=== PATIENT | male | born 1960 | race Hispanic/Latino ===

== ENCOUNTER 2019-06-04 13:50 | Inpatient (IN) | payer BC ==
[2019-06-04 15:30] LABS: #Eosinphils 0.2 thou/uL (0.0-0.7); #Lymphocytes 2.3 thou/uL (1.20-3.40); #Monocytes 0.5 thou/uL (0.11-0.59); #Neutrophils 5.5 thou/uL (1.40-6.50); %Basophils 0.3 % (0.0-1.0); %Eosinophils 2.4 % (0.0-10.0); %Lymphocytes 27.3 % (21.0-51.0); %Monocytes 5.4 % (0.0-10.0); %Neutrophils 64.5 % (42.0-75.0); Hemoglobin 11.9 g/dL (14.0-18.0); Mean Corpuscular HGB CONC 35.5 g/dL (32.0-36.0); Mean Corpuscular Hemoglobin 28.4 pg (27.0-31.0); Mean Corpuscular Volume 79.8 fL (78.0-98.0); Platelet Count 244 thou/uL (130-400); RBC Distribution Width 12.3 % (11.5-14.5); White Blood Cell (WBC) Count 8.5 thou/uL (4.8-10.8)
[2019-06-04 15:51] LABS: ALT (SGPT) 10 U/L (8-55); AST (SGOT) 11 U/L (5-34); Albumin 2.9 g/dL (3.5-5.0); Alkaline Phosphatase 105 U/L (40-110); Anion Gap 9 mmol/L (10-20); BUN (Urea Nitrogen) 27 mg/dL (8.4-25.7); Bilirubin, Total 0.3 mg/dL (0.2-1.2); Calc. Creatinine Clearance 0 mL/min (70-130); Calcium 8.3 mg/dL (7.8-10.44); Carbon Dioxide 26 mmol/L (22-29); Chloride 105 mmol/L (98-107); Estimated GFR-MDRD 21; Globulin 3.2 g/dL (2.4-3.5); Glucose 190 mg/dL (70-105); Potassium 4.3 mmol/L (3.5-5.1); Protein, Total 6.1 g/dL (6.0-8.3); Sodium 136 mmol/L (136-145)
--- NOTE | 2019-06-04 18:22 | RAD ---
Exam: Chest 2 views HISTORY:Abscess Comparison: 06/30/2016 FINDINGS: Lungs: No masses or consolidation. Cardiac silhouette:Postop change of sternotomy. Cardiac silhouette is mildly enlarged. Pulmonary vessels: Mild prominence Pleural Spaces: Clear Pneumothorax: None Osseous abnormalities: None of acuity. IMPRESSION: Postoperative chest, without focal consolidation. Scattered chronic CHF.
--- NOTE | 2019-06-04 19:29 | ULT ---
RENAL ULTRASOUND: Date: 06-04-19 Comparison: None. History: Renal failure. Technique: Multiplanar grayscale sonographic imaging of the kidneys and urinary bladder obtained. FINDINGS: Left kidney measures 11.5 x 5.2 x 5.7 cm and the right kidney measures 12.3 x 5.9 x 6.7 cm. Urinary b ladder volume is 90 cc. There is no renal mass, hydronephrosis, or renal stone noted on either side. IMPRESSION: Unremarkable renal ultrasound. POS: JUNE
[2019-06-04] MEDS ORDERED: Acetaminophen 325 MG TAB PO PRN (19:44)
[2019-06-04] MEDS ORDERED: Ondansetron ODT 4 MG TAB PO PRN (19:44)
[2019-06-04] MEDS ORDERED: Dextrose 5% in Water 1,000 ML IV PRN (19:48)
[2019-06-04] MEDS ORDERED: Dextrose 50% Abboject 50 ML SYRINGE SLOW IVP PRN (19:48)
[2019-06-04] MEDS ORDERED: cloNIDine 0.1 MG TAB ONE (20:05)
[2019-06-04] MEDS ORDERED: Nitroglycerin 2% Ointment 1 INCH/1 GM Packet ONE (20:05)
[2019-06-04] MEDS ORDERED: Heparin 5,000 UNITS/ML VIAL SC SCH (21:00)
--- NOTE | 2019-06-04 21:09 | PDOC.EVN ---
Event Note - Event Note Event Note: [id number]
[2019-06-04] MEDS ORDERED: Cephalexin 250 MG CAP PO SCH (21:15)
[2019-06-04] MEDS ORDERED: Morphine 4 MG/ML VIAL ONE (21:32)
[2019-06-04] MEDS ORDERED: Acetaminophen 500 MG TAB ONE (21:32)
[2019-06-04 22:03] LABS: Lactic Acid 0.9 mmol/L (0.5-2.2)
--- NOTE | 2019-06-04 22:31 | ULT ---
EXAM: Bilateral lower extremity venous duplex: Deep veins evaluated with color Doppler, spectral analysis, and compression. INDICATIONS: Bilateral lower extremity pain and edema. FINDINGS: Deep veins interrogated include common femoral vein, femoral vein, popliteal vein, and post erior tibial vein. These veins show normal compression and blood flow. No evidence of DVT. Focus of altered echogenicity, right popliteal fossa measures between 5 and 6 cm in diameter IMPRESSION: Negative bilateral venous duplex exam. Findings favor complex right Barcenas cyst.
[2019-06-04 23:43] VITALS: BMI 35.2
[2019-06-05] MEDS: Sodium Chloride 0.9% 1,000 ML IV SCH ×2 (00:07→08:29)
[2019-06-05] MEDS ORDERED: Cephalexin 250 MG CAP PO SCH (00:15)
[2019-06-05] MEDS ORDERED: Heparin 5,000 UNITS/ML VIAL SC SCH (00:15)
[2019-06-05] MEDS: Heparin 5,000 UNITS/ML VIAL SC SCH ×2 (00:28→20:06)
--- NOTE | 2019-06-05 01:03 | HP ---
CHIEF COMPLAINT: Left leg pain and swelling. HISTORY OF PRESENT ILLNESS: Mr. Ramos is a 58-year-old male with past medical history of hypertension, hyperlipidemia, diabetes mellitus, type 2, presents to the emergency room with pain and swelling of both lower extremities, more on the left side. His leg has been painful and swollen for the last few weeks. According to him, he had a trauma to his left leg a few weeks ago. Leg started to swollen and being red, he did not take any antibiotics. Workup in the emergency room, the patient was found to be hypertensive with blood pressure as high as 255/112. Also, he was found to have acute kidney injury with a creatinine of 3.0. The patient is being admitted to the hospital for further management. PAST MEDICAL HISTORY: 1. Hypertension. 2. Hyperlipidemia. 3. Diabetes mellitus. 4. Coronary artery disease. PAST SURGICAL HISTORY: 1. Coronary artery bypass graft surgery. 2. Left shoulder surgery. 3. Right shoulder surgery. SOCIAL HISTORY: Denies drinking. He smokes cigars, 3 cigars per day. FAMILY HISTORY: Reviewed and noncontributory. ALLERGIES: NO KNOWN ALLERGIES. HOME MEDICATIONS: Please see home medication reconciliation form for updated medications. REVIEW OF SYSTEMS: Review of 14 systems negative except what is mentioned in history of present illness. PHYSICAL EXAMINATION: VITAL SIGNS: Blood pressure 238/119, pulse is 65, respiratory rate 14, pulse oximetry 99% on room air, temperature 97.8. GENERAL: The patient is awake, alert, does not appear to be in acute distress. HEAD: Normocephalic, atraumatic. NECK: Supple. No JVD. CHEST: Fair bilateral air entry. HEART: S1, S2. Regular. ABDOMEN: Soft, nontender. Bowel sounds present. NEUROLOGIC: Awake, alert, oriented x3. PSYCHIATRIC: Normal mood. EXTREMITIES: Both legs are swollen, more on the left side with skin breakdown/wound in the middle of the left leg anteriorly with surrounding erythema, minimal. LABORATORY DATA: Glucose 190, creatinine 3.0. WBC count is 8.5, hemoglobin 11.9, BNP is 105. Lactic acid is 2.2. ASSESSMENT: 1. Hypertensive emergency. 2. Acute renal failure. 3. Cellulitis of the left leg. 4. Diabetes mellitus, hyperglycemia. 5. Hyperlipidemia. 6. Coronary artery disease. PLAN: 1. Admit. 2. Monitor and control blood pressures. 3. Cautious IV fluid hydration, reassess in a.m. 4. Monitor kidney function and urine output. 5. Consider nephrology consultation in a.m. 6. We will get a venous Doppler of the left leg to rule out deep venous thrombosis. 7. Reconcile home medications. 8. Deep venous thrombosis prophylaxis as appropriate. 9. Expected length of stay, 2 midnights or more. Job ID: [id number]
[2019-06-05 06:14] LABS: #Basophils 0.1 thou/uL (0.0-0.2); #Eosinphils 0.3 thou/uL (0.0-0.7); #Lymphocytes 2.4 thou/uL (1.20-3.40); #Monocytes 0.5 thou/uL (0.11-0.59); #Neutrophils 3.7 thou/uL (1.40-6.50); %Basophils 1.2 % (0.0-1.0); %Eosinophils 4.4 % (0.0-10.0); %Lymphocytes 34.2 % (21.0-51.0); %Neutrophils 53.3 % (42.0-75.0); Hemoglobin 10.5 g/dL (14.0-18.0); Mean Corpuscular HGB CONC 34.6 g/dL (32.0-36.0); Mean Corpuscular Volume 80.9 fL (78.0-98.0); Mean Platelet Volume 7.3 fL (7.4-10.4); Platelet Count 234 thou/uL (130-400); RBC Distribution Width 12.3 % (11.5-14.5); Red Blood Cell (RBC) Count 3.74 mill/uL (4.70-6.10); White Blood Cell (WBC) Count 6.9 thou/uL (4.8-10.8)
[2019-06-05 06:32] LABS: Anion Gap 8 mmol/L (10-20); BUN (Urea Nitrogen) 25 mg/dL (8.4-25.7); Calc. Creatinine Clearance 39 mL/min (70-130); Calcium 7.7 mg/dL (7.8-10.44); Carbon Dioxide 24 mmol/L (22-29); Chloride 107 mmol/L (98-107); Estimated GFR-MDRD 24; Glucose 187 mg/dL (70-105); Potassium 3.7 mmol/L (3.5-5.1); Sodium 135 mmol/L (136-145)
[2019-06-05] MEDS: Cephalexin 250 MG CAP PO SCH ×4 (08:28→20:06)
[2019-06-05] MEDS ORDERED: FLU VACC QS2019-20(6MOS UP)/PF 60 MCG/0.5 ML SYRINGE IM ONE (09:00)
[2019-06-05] MEDS ORDERED: Benzonatate 100 MG CAP PO PRN (10:52)
[2019-06-05] MEDS ORDERED: Carvedilol 6.25 MG TAB PO SCH (11:15)
[2019-06-05] MEDS: Carvedilol 6.25 MG TAB PO SCH ×2 (11:19→16:37)
--- NOTE | 2019-06-05 14:23 | PDOC.HOSPP ---
- Subjective Subjective: Seen and examined. Breathing well on room air. Lower extremity edema persists. Patient with lower extremity wound that has been there for several weeks/ month. Patient denies history of renal disease in the past. Patient does endorse history of coronary artery bypass grafting, though he denies history of congestive heart failure. Patient has not seen donations attendant in greater than nine months. Family at bedside, all questions answered in detail. - Objective Vital Signs & Weight: Vital Signs (12 hours) Temp Pulse Resp BP Pulse Ox 06/05/19 08:00 97.7 F 64 18 180/87 H 99 06/05/19 04:00 97.4 F L 70 18 182/82 H 96 Weight Weight 205 lb 4 oz I&O: 06/04/19 06/05/19 06/06/19 06:59 06:59 06:59 Intake Total 750 Output Total 1100 Balance -350 Result Diagrams: 06/05/19 05:45 06/05/19 05:45 Additional Labs: Accuchecks 06/05/19 06/05/19 06/05/19 11:34 04:46 00:16 POC Glucose 237 H 203 H 136 H Radiology Reviewed by me: Yes (Renal US) Hospitalist ROS - Review of Systems All other systems reviewed; all pertinent +/- noted in HPI/Subj - Medication Medications: Active Medications Generic Name Dose Route Start Last Admin Trade Name Freq PRN Reason Stop Dose Admin Cephalexin 250 mg 06/05/19 09:00 06/05/19 13:03 Keflex PO 250 mg QID JOSIAS Administration Heparin Sodium (Porcine) 5,000 units 06/05/19 09:00 06/05/19 00:28 Heparin SC 5,000 units BID JOSIAS Administration Sodium Chloride 1,000 mls @ 75 mls/hr 06/04/19 19:45 06/05/19 08:29 Normal Saline 0.9% IV 1,000 mls .[id number] JOSIAS Administration - Exam General Appearance: NAD, awake alert Eye: anicteric sclera ENT: normocephalic atraumatic, moist mucosa Neck: supple, symmetric, no lymphadenopathy Heart: no murmur, no gallops, no rubs Respiratory: CTAB, no wheezes, no rales, no ronchi Gastrointestinal: soft, non-tender, no guarding, no rigidity Extremities - other findings: 3+ LE edema bilaterally Skin: no rashes Skin - other findings: Small superficial skin lesion on left leg anterior, scabbed healing Neurological: cranial nerve grossly intact, no focal deficits Musculoskeletal: normal strength, no muscle wasting Psychiatric: normal affect, A&O x 3 Hosp A/P (1) DONTA (acute kidney injury) Code(s): N17.9 - ACUTE KIDNEY FAILURE, UNSPECIFIED Status: Acute (2) CAD (coronary artery disease) Code(s): I25.10 - ATHSCL HEART DISEASE OF [place] CORONARY ARTERY W/O ANG PCTRS Status: Acute (3) DM (diabetes mellitus) Code(s): E11.9 - TYPE 2 DIABETES MELLITUS WITHOUT COMPLICATIONS Status: Acute (4) HTN (hypertension) Code(s): I10 - ESSENTIAL (PRIMARY) HYPERTENSION Status: Acute (5) HLD (hyperlipidemia) Code(s): E78.5 - HYPERLIPIDEMIA, UNSPECIFIED Status: Acute (6) Obesity (BMI 35.0-39.9 without comorbidity) Code(s): E66.9 - OBESITY, UNSPECIFIED Status: Acute - Plan Plan: medical/surgical unit nephrology consultation, recommendations appreciated renal ultrasound does not demonstrate obstructive uropathy gentle IV fluid resuscitation in the setting of coronary artery disease/ coronary artery bypass grafting patient does not know if he has a history of heart failure echocardiogram to quantify ejection fraction lower extremity ultrasound negative for DVT cardiomyopathy regimen is able hold nephro toxins insulin sliding-scale coverage for glucose control replace electrolytes as needed wound care lower extremity wounds
[2019-06-05] MEDS: hydrALAZINE 20 MG/ML VIAL SLOW IVP PRN (20:06)
[2019-06-05] MEDS: Acetaminophen/Codeine 30-300mg Tablet PO PRN (20:06)
[2019-06-05] MEDS: Amlodipine 5 MG TAB PO SCH (21:33)
--- NOTE | 2019-06-06 01:13 | CON ---
DATE OF CONSULTATION: 06/05/2019 CONSULTING PHYSICIAN: Dr. Medina. REASON FOR CONSULTATION: Acute kidney injury. REASON FOR ADMISSION: Leg pain. HISTORY OF PRESENT ILLNESS: A 58-year-old male with history of hypertension, hyperlipidemia, type 2 diabetes, coronary artery disease, came to the hospital with leg pain and was found to have acute kidney injury. His creatinine was around 3 and this morning, it was 2.7. He was started on hydration. He denies any nausea or vomiting. No chest pain or palpitation. No fever or chills. PAST MEDICAL HISTORY: Positive for hypertension, hyperlipidemia, type 2 diabetes, and coronary artery disease. PAST SURGICAL HISTORY: CABG, left shoulder and right shoulder surgery. HOME MEDICATIONS: 1. Tylenol No. 3. 2. Metoprolol. 3. Atorvastatin. 4. Metformin. 5. Gabapentin. ALLERGIES: NO KNOWN DRUG ALLERGIES. SOCIAL HISTORY: No smoking, alcohol or illicit drug abuse. FAMILY HISTORY: No history of kidney disease. REVIEW OF SYSTEMS: CONSTITUTIONAL: Negative for weight loss or gain, ability to conduct usual activities. SKIN: Negative for rash, itching. EYES: Negative for double vision, pain. ENT/MOUTH: Negative for nose bleeding, neck stiffness, pain, tenderness. CARDIOVASCULAR: Negative for palpitations, dyspnea on exertion, orthopnea. RESPIRATORY: Negative for shortness of breath, wheezing, cough, hemoptysis, fever or night sweats. GASTROINTESTINAL: Negative for poor appetite, abdominal pain, heartburn, nausea, vomiting, constipation, or diarrhea. GENITOURINARY: Negative for urgency, frequency, dysuria, nocturia. MUSCULOSKELETAL: Negative for pain, swelling. NEUROLOGIC/PSYCHIATRIC: Negative for anxiety, depression. ALLERGY/IMMUNOLOGIC: Negative for skin rash, bleeding tendency. PHYSICAL EXAMINATION: GENERAL: This is a well-built male, in no apparent distress. VITAL SIGNS: blood pressure 194/89. HEENT: Atraumatic, normocephalic. Oral mucosa is moist. NECK: Supple. CV: S1 and S2 heard. Rate and rhythm regular. RESPIRATORY: Clear. GI: Abdomen is soft. MUSCULOSKELETAL: 1+ edema. DERMATOLOGIC: No skin rash. NEUROLOGIC: Alert and awake. PSYCHIATRIC: Mood and affect normal. LABORATORY DATA: Labs show hemoglobin 10.5, potassium 3.7, BUN , creatinine is 2.7. ASSESSMENT AND PLAN: 1. Acute kidney injury on chronic kidney, stage 3. We will continue hydration. Avoid nephrotoxins. 2. Hyponatremia. 3. Edema, controlled. 4. History of hypertension. Titrate medications. 5. Anemia, mild. 6. Continue IV fluids. Avoid nephrotoxins. We will follow. Blood pressure remains low despite on carvedilol. We will increase the dose and titrate medications as tolerated. We will follow. Job ID: [id number]
[2019-06-06] MEDS: Sodium Chloride 0.9% 1,000 ML IV SCH ×2 (03:25→16:54)
[2019-06-06] MEDS: HYDROcodone/Acetaminophen 5/325 mg Tablet PO PRN ×2 (03:29→21:48)
[2019-06-06 06:14] LABS: Anion Gap 10 mmol/L (10-20); BUN (Urea Nitrogen) 24 mg/dL (8.4-25.7); Calc. Creatinine Clearance 39 mL/min (70-130); Calcium 7.7 mg/dL (7.8-10.44); Carbon Dioxide 22 mmol/L (22-29); Chloride 108 mmol/L (98-107); Estimated GFR-MDRD 24; Glucose 168 mg/dL (70-105); Sodium 136 mmol/L (136-145)
[2019-06-06] MEDS ORDERED: Ergocalciferol 1.25 MG(50,000 UNITS) CAP PO SCH (09:00)
[2019-06-06] MEDS: Cephalexin 250 MG CAP PO SCH ×4 (09:22→20:33)
[2019-06-06] MEDS: Carvedilol 6.25 MG TAB PO SCH ×2 (09:22→16:55)
[2019-06-06] MEDS: Heparin 5,000 UNITS/ML VIAL SC SCH ×2 (09:23→20:35)
[2019-06-06 10:54] LABS: #Eosinphils 0.2 thou/uL (0.0-0.7); #Lymphocytes 1.6 thou/uL (1.20-3.40); #Monocytes 0.4 thou/uL (0.11-0.59); #Neutrophils 3.8 thou/uL (1.40-6.50); %Basophils 0.6 % (0.0-1.0); %Eosinophils 3.4 % (0.0-10.0); %Lymphocytes 26.6 % (21.0-51.0); %Monocytes 6.2 % (0.0-10.0); %Neutrophils 63.2 % (42.0-75.0); Mean Corpuscular HGB CONC 34.4 g/dL (32.0-36.0); Mean Corpuscular Hemoglobin 28.2 pg (27.0-31.0); Mean Corpuscular Volume 81.9 fL (78.0-98.0); Mean Platelet Volume 7.4 fL (7.4-10.4); Platelet Count 224 thou/uL (130-400); RBC Distribution Width 12.5 % (11.5-14.5); Red Blood Cell (RBC) Count 3.91 mill/uL (4.70-6.10); White Blood Cell (WBC) Count 6.1 thou/uL (4.8-10.8)
[2019-06-06 11:03] LABS: Anion Gap 9 mmol/L (10-20); BUN (Urea Nitrogen) 25 mg/dL (8.4-25.7); Calc. Creatinine Clearance 37 mL/min (70-130); Calcium 7.8 mg/dL (7.8-10.44); Carbon Dioxide 22 mmol/L (22-29); Chloride 108 mmol/L (98-107); Estimated GFR-MDRD 23; Glucose 200 mg/dL (70-105); Potassium 4.1 mmol/L (3.5-5.1); Sodium 135 mmol/L (136-145)
[2019-06-06] MEDS: HumaLOG 300 UNITS/3 ML VIAL SC PRN (12:24)
--- NOTE | 2019-06-06 13:40 | PDOC.HOSPP ---
- Subjective Subjective: Seen and examined. Patient with persistent lower extremity edema. Breathing well on room air. Lower extremity wounds with less cellulitis on oral antibiotics. Echocardiogram pending. Renal function did not significantly improve. All questions answered in detail. - Objective Vital Signs & Weight: Vital Signs (12 hours) Temp Pulse Resp BP BP Pulse Ox 06/06/19 09:22 168/82 H 06/06/19 08:00 93 L 06/06/19 07:38 97.8 F 69 20 172/88 H 93 L 06/06/19 04:23 98.0 F 73 20 158/88 H 97 Weight Weight 205 lb 4 oz I&O: 06/05/19 06/06/19 06/07/19 06:59 06:59 06:59 Intake Total 750 1093 Output Total 1100 Balance -350 1093 Result Diagrams: 06/06/19 10:37 06/06/19 10:37 Additional Labs: Accuchecks 06/06/19 06/05/19 06/05/19 03:57 19:53 16:34 POC Glucose 164 H 194 H 200 H Radiology Reviewed by me: Yes (US LE - no DVT) Hospitalist ROS - Review of Systems All other systems reviewed; all pertinent +/- noted in HPI/Subj - Medication Medications: Active Medications Generic Name Dose Route Start Last Admin Trade Name Freq PRN Reason Stop Dose Admin Acetaminophen/Codeine Phosphate 1 tab 06/05/19 10:52 06/05/19 20:06 Tylenol #3 PO 1 tab DAILY PRN Administration Pain Hydrocodone Bitart/Acetaminophen 1 tab 06/04/19 19:44 06/06/19 03:29 [place] 5/325 PO 1 tab Q4H PRN Administration Moderate Pain (4-6) Amlodipine Besylate 5 mg 06/05/19 21:00 06/05/19 21:33 Norvasc PO 5 mg 2100 JOSIAS Administration Carvedilol 12.5 mg 06/05/19 20:50 06/06/19 09:22 Coreg PO 12.5 mg BID-WM JOSIAS Administration Cephalexin 250 mg 06/05/19 09:00 06/06/19 09:22 Keflex PO 250 mg QID JOSIAS Administration Ergocalciferol 1.25 mg 06/06/19 09:00 06/06/19 09:22 Drisdol PO 1.25 mg Q7DAYS JOSIAS Administration Heparin Sodium (Porcine) 5,000 units 06/05/19 09:00 06/06/19 09:23 Heparin SC 5,000 units BID JOSIAS Administration Hydralazine HCl 20 mg 06/04/19 21:07 06/05/19 20:06 Apresoline SLOW IVP 20 mg Q4H PRN Administration SBP >190 or DBP >100 Sodium Chloride 1,000 mls @ 75 mls/hr 06/04/19 19:45 06/06/19 03:25 Normal Saline 0.9% IV 1,000 mls .[id number] JOSIAS Administration Insulin Human Lispro 0 units 06/04/19 19:48 06/06/19 12:24 Humalog SC 2 unit .MILD SLIDING SCALE PRN Administration Mild Correctional Scale - Exam General Appearance: NAD, awake alert Eye: anicteric sclera ENT: normocephalic atraumatic, moist mucosa Neck: supple, symmetric, no lymphadenopathy Heart: no murmur, no gallops, no rubs Respiratory: CTAB, no wheezes, no rales, no ronchi Gastrointestinal: soft, non-tender, non-distended, no rigidity Extremities: 2+ LE edema Skin: no rashes Skin - other findings: Ant. holley lesion with less cellulitis. Improving Neurological: cranial nerve grossly intact, no weakness, no focal deficits Musculoskeletal: no muscle wasting Psychiatric: normal affect, A&O x 3 Hosp A/P (1) DONTA (acute kidney injury) Code(s): N17.9 - ACUTE KIDNEY FAILURE, UNSPECIFIED Status: Acute (2) CAD (coronary artery disease) Code(s): I25.10 - ATHSCL HEART DISEASE OF [place] CORONARY ARTERY W/O ANG PCTRS Status: Acute (3) DM (diabetes mellitus) Code(s): E11.9 - TYPE 2 DIABETES MELLITUS WITHOUT COMPLICATIONS Status: Acute (4) HTN (hypertension) Code(s): I10 - ESSENTIAL (PRIMARY) HYPERTENSION Status: Acute (5) HLD (hyperlipidemia) Code(s): E78.5 - HYPERLIPIDEMIA, UNSPECIFIED Status: Acute (6) Obesity (BMI 35.0-39.9 without comorbidity) Code(s): E66.9 - OBESITY, UNSPECIFIED Status: Acute - Plan Plan: medical/surgical unit nephrology consultation, recommendations appreciated renal ultrasound does not demonstrate obstructive uropathy gentle IV fluid resuscitation in the setting of coronary artery disease/ coronary artery bypass grafting patient does not know if he has a history of heart failure echocardiogram to quantify ejection fraction lower extremity ultrasound negative for DVT cardiomyopathy regimen is able hold nephro toxins insulin sliding-scale coverage for glucose control A1c to see if patient will require insulin on D/c replace electrolytes as needed wound care lower extremity wounds
[2019-06-06 14:12] LABS: Hemoglobin A1c 8.6 % (4.0-6.0)
--- NOTE | 2019-06-06 20:18 | PRG ---
DATE OF SERVICE: 06/06/2019 SUBJECTIVE: Patient was seen and examined at bedside and overnight events noted. Patient denies any shortness of breath or chest pain or palpitation. No history of nausea or vomiting or diarrhea or fever or chills or cramps. OBJECTIVE: GENERAL: This is a well-built male, in no apparent distress. VITAL SIGNS: Temperature 97.8. Heart rate 69. Respiratory rate . Blood pressure 160/82. HEENT: Atraumatic, normocephalic. Oral mucosa is moist NECK: Supple. CARDIOVASCULAR: S1, S2 heard. Rate and rhythm regular. RESPIRATORY: Clear to auscultation. GASTROINTESTINAL: Abdomen is soft. MUSCULOSKELETAL: No tenderness. No edema. DERMATOLOGIC: No skin rash. NEUROLOGIC: Alert and awake and oriented X3. No focal neurologic deficits. Moving all the extremities. PSYCHIATRIC: Mood and affect normal. LABORATORY DATA: Potassium 4.9, BUN is , creatinine is 2.8. ASSESSMENT AND PLAN: 1. Acute kidney injury on chronic kidney disease, stage 3 with stable creatinine. 2. Hyponatremia. 3. Edema. 4. Hypertension. 5. Vitamin deficiency with hyperparathyroidism, started on vitamin D. 6. Anemia, which is normocytic. We will check iron levels also. We will follow, avoid nephrotoxins. Renally dose the medications. Continue hydration as tolerated. Job ID: [id number]
[2019-06-06] MEDS: Amlodipine 5 MG TAB PO SCH (20:34)
[2019-06-06] MEDS: hydrALAZINE 20 MG/ML VIAL SLOW IVP PRN (20:40)
[2019-06-07] MEDS: Sodium Chloride 0.9% 1,000 ML IV SCH (04:34)
[2019-06-07] MEDS: HYDROcodone/Acetaminophen 5/325 mg Tablet PO PRN ×2 (04:37→20:32)
[2019-06-07] MEDS: hydrALAZINE 20 MG/ML VIAL SLOW IVP PRN (04:37)
[2019-06-07 07:03] LABS: Anion Gap 11 mmol/L (10-20); BUN (Urea Nitrogen) 24 mg/dL (8.4-25.7); Calc. Creatinine Clearance 40 mL/min (70-130); Carbon Dioxide 20 mmol/L (22-29); Chloride 109 mmol/L (98-107); Estimated GFR-MDRD 25; Glucose 153 mg/dL (70-105); Potassium 3.8 mmol/L (3.5-5.1); Sodium 136 mmol/L (136-145)
[2019-06-07 07:07] LABS: Iron 60 ug/dL (65-175); Iron Binding Capacity, Total 230 mcg/dL (261-462)
[2019-06-07] MEDS: Heparin 5,000 UNITS/ML VIAL SC SCH ×2 (08:11→20:32)
[2019-06-07] MEDS: Cephalexin 250 MG CAP PO SCH ×4 (08:11→20:32)
[2019-06-07] MEDS: Carvedilol 6.25 MG TAB PO SCH (08:11)
[2019-06-07] MEDS ORDERED: Carvedilol 6.25 MG TAB PO SCH (10:30)
[2019-06-07] MEDS ORDERED: Amlodipine 5 MG TAB PO SCH (10:30)
[2019-06-07 10:46] LABS: Creatinine, Urine 90.06 mg/dL (63-166)
--- NOTE | 2019-06-07 10:49 | PRG ---
DATE OF SERVICE: 06/07/2019 SUBJECTIVE: Patient was seen and examined at bedside and overnight events noted. Patient denies any shortness of breath or chest pain or palpitation. No history of nausea or vomiting or diarrhea or fever or chills or cramps. OBJECTIVE: GENERAL: This is a well-built male, in no apparent distress. VITAL SIGNS: Temperature 98.1. Heart rate 77. Respiratory rate 18. Blood pressure 184/79. HEENT: Atraumatic, normocephalic. Oral mucosa is moist NECK: Supple. CARDIOVASCULAR: S1, S2 heard. Rate and rhythm regular. RESPIRATORY: Clear to auscultation. GASTROINTESTINAL: Abdomen is soft. MUSCULOSKELETAL: No tenderness. No edema. DERMATOLOGIC: No skin rash. NEUROLOGIC: Alert and awake and oriented X3. No focal neurologic deficits. Moving all the extremities. PSYCHIATRIC: Mood and affect normal. LABORATORY DATA: Potassium 3.8, BUN is 24, and creatinine is 2.6. ASSESSMENT AND PLAN: 1. Acute kidney injury on chronic kidney disease stage 3, stable creatinine. It sounds like more chronic issue. 2. Hyponatremia. 3. Edema. 4. Vitamin D deficiency with secondary hyperparathyroidism. Continue vitamin D. 5. Anemia with adequate iron levels. 6. History of hypertension. Blood pressure remains elevated. Started on amlodipine. We will increase the dose to 5 mg p.o. b.i.d. We will increase carvedilol dose as heart rate is tolerated. We will follow. Job ID: [id number]
[2019-06-07] MEDS: HumaLOG 300 UNITS/3 ML VIAL SC PRN (11:27)
--- NOTE | 2019-06-07 15:17 | PDOC.HOSPP ---
- Subjective Encounter Date: 06/07/19 Encounter Time: 15:15 Subjective: Feeling better - Objective Vital Signs & Weight: Vital Signs (12 hours) Temp Pulse Resp BP BP Pulse Ox 06/07/19 12:13 98.3 F 75 18 172/84 H 99 06/07/19 11:25 189/79 H 06/07/19 08:11 189/79 H 06/07/19 08:00 98 06/07/19 07:39 98.1 F 77 20 184/79 H 98 06/07/19 05:36 76 153/78 H 06/07/19 04:37 72 194/95 H 06/07/19 04:32 98.4 F 72 18 195/94 H 98 Weight Admit Weight 205 lb 4 oz Weight 205 lb 4 oz I&O: 06/06/19 06/07/19 06/08/19 06:59 06:59 06:59 Intake Total 1093 2819 Balance 1093 2819 Result Diagrams: 06/06/19 10:37 06/07/19 06:01 Additional Labs: Accuchecks 06/07/19 06/07/19 06/06/19 11:27 04:55 19:15 POC Glucose 202 H 137 H 193 H 06/06/19 16:50 POC Glucose 129 H Hospitalist ROS - Medication Medications: Active Medications Generic Name Dose Route Start Last Admin Trade Name Freq PRN Reason Stop Dose Admin Acetaminophen/Codeine Phosphate 1 tab 06/05/19 10:52 06/05/19 20:06 Tylenol #3 PO 1 tab DAILY PRN Administration Pain Hydrocodone Bitart/Acetaminophen 1 tab 06/04/19 19:44 06/07/19 04:37 [place] 5/325 PO 1 tab Q4H PRN Administration Moderate Pain (4-6) Cephalexin 250 mg 06/05/19 09:00 06/07/19 13:10 Keflex PO 250 mg QID JOSIAS Administration Ergocalciferol 1.25 mg 06/06/19 09:00 06/06/19 09:22 Drisdol PO 1.25 mg Q7DAYS JOSIAS Administration Heparin Sodium (Porcine) 5,000 units 06/05/19 09:00 06/07/19 08:11 Heparin SC 5,000 units BID JOSIAS Administration Hydralazine HCl 20 mg 06/04/19 21:07 06/07/19 04:37 Apresoline SLOW IVP 20 mg Q4H PRN Administration SBP >190 or DBP >100 Insulin Human Lispro 0 units 06/04/19 19:48 06/07/19 11:27 Humalog SC 3 unit .MILD SLIDING SCALE PRN Administration Mild Correctional Scale - Exam General Appearance: NAD, awake alert, ill appearing Eye: PERRL, anicteric sclera, scleral icterus ENT: normocephalic atraumatic, no oropharyngeal lesions, moist mucosa, dry oral mucosa Neck: supple, symmetric, no JVD, no thyromegaly, no lymphadenopathy, no carotid bruit, JVD Heart: RRR, no murmur, no gallops, no rubs, normal peripheral pulses, irregular , diminshed peripheral pulses, murmur present, II/IV, III/IV Respiratory: CTAB, no wheezes, no rales, no ronchi, normal chest expansion, no tachypnea, normal percussion, rales, rhonchi, tachypneic, wheezes Gastrointestinal: soft, non-tender, non-distended, normal bowel sounds, no palpable masses, no hepatomegaly, no splenomegaly, no bruit, no guarding, no rigidity, tender to palpation, distended, diminished bowl sounds, voluntary guarding Extremities: no cyanosis, no clubbing, no edema, 1+ LE edema, 2+ LE edema, clubbing Skin: normal turgor, no lesions, no rashes, tenting Hosp A/P (1) DONTA (acute kidney injury) Code(s): N17.9 - ACUTE KIDNEY FAILURE, UNSPECIFIED Status: Acute (2) CAD (coronary artery disease) Code(s): I25.10 - ATHSCL HEART DISEASE OF [place] CORONARY ARTERY W/O ANG PCTRS Status: Acute Plan: Apreciate Nephrology input, Monitor the labs (3) DM (diabetes mellitus) Code(s): E11.9 - TYPE 2 DIABETES MELLITUS WITHOUT COMPLICATIONS Status: Acute (4) HLD (hyperlipidemia) Code(s): E78.5 - HYPERLIPIDEMIA, UNSPECIFIED Status: Acute (5) HTN (hypertension) Code(s): I10 - ESSENTIAL (PRIMARY) HYPERTENSION Status: Acute
[2019-06-07] MEDS: Carvedilol 25 MG TAB PO SCH (16:06)
[2019-06-07] MEDS: Amlodipine 5 MG TAB PO SCH (20:29)
[2019-06-08 05:51] LABS: Anion Gap 11 mmol/L (10-20); BUN (Urea Nitrogen) 29 mg/dL (8.4-25.7); Calc. Creatinine Clearance 40 mL/min (70-130); Calcium 7.8 mg/dL (7.8-10.44); Carbon Dioxide 20 mmol/L (22-29); Chloride 109 mmol/L (98-107); Estimated GFR-MDRD 25; Glucose 142 mg/dL (70-105); Potassium 3.7 mmol/L (3.5-5.1); Sodium 136 mmol/L (136-145)
[2019-06-08] MEDS: Carvedilol 25 MG TAB PO SCH ×2 (08:37→17:11)
[2019-06-08] MEDS: Amlodipine 5 MG TAB PO SCH ×2 (08:38→20:11)
[2019-06-08] MEDS: Cephalexin 250 MG CAP PO SCH ×4 (08:38→20:12)
[2019-06-08] MEDS: Heparin 5,000 UNITS/ML VIAL SC SCH ×2 (08:39→20:12)
--- NOTE | 2019-06-08 11:20 | PDOC.HOSPP ---
- Subjective Encounter Date: 06/08/19 Encounter Time: 11:18 Subjective: The Bp has been still high - Objective Vital Signs & Weight: Vital Signs (12 hours) Temp Pulse Resp BP BP Pulse Ox 06/08/19 08:38 60 186/84 H 06/08/19 07:43 97.9 F 62 18 186/84 H 98 Weight Admit Weight 205 lb 4 oz Weight 205 lb 4 oz I&O: 06/07/19 06/08/19 06/09/19 06:59 06:59 06:59 Intake Total 2819 2370 Balance 2819 2370 Result Diagrams: 06/06/19 10:37 06/08/19 05:12 Additional Labs: Accuchecks 06/08/19 06/07/19 06/07/19 04:54 19:09 16:43 POC Glucose 139 H 179 H 141 H 06/07/19 11:27 POC Glucose 202 H Hospitalist ROS - Medication Medications: Active Medications Generic Name Dose Route Start Last Admin Trade Name Freq PRN Reason Stop Dose Admin Acetaminophen/Codeine Phosphate 1 tab 06/05/19 10:52 06/05/19 20:06 Tylenol #3 PO 1 tab DAILY PRN Administration Pain Hydrocodone Bitart/Acetaminophen 1 tab 06/04/19 19:44 06/07/19 20:32 [place] 5/325 PO 1 tab Q4H PRN Administration Moderate Pain (4-6) Amlodipine Besylate 5 mg 06/07/19 21:00 06/08/19 08:38 Norvasc PO 5 mg BID JOSIAS Administration Carvedilol 25 mg 06/07/19 17:00 06/08/19 08:37 Coreg PO 25 mg BID-WM JOSIAS Administration Cephalexin 250 mg 06/05/19 09:00 06/08/19 08:38 Keflex PO 250 mg QID JOSIAS Administration Ergocalciferol 1.25 mg 06/06/19 09:00 06/06/19 09:22 Drisdol PO 1.25 mg Q7DAYS JOSIAS Administration Heparin Sodium (Porcine) 5,000 units 06/05/19 09:00 06/08/19 08:39 Heparin SC 5,000 units BID JOSIAS Administration Hydralazine HCl 20 mg 06/04/19 21:07 06/07/19 04:37 Apresoline SLOW IVP 20 mg Q4H PRN Administration SBP >190 or DBP >100 Insulin Human Lispro 0 units 06/04/19 19:48 06/07/19 11:27 Humalog SC 3 unit .MILD SLIDING SCALE PRN Administration Mild Correctional Scale - Exam General Appearance: NAD, awake alert, ill appearing Eye: PERRL, anicteric sclera, scleral icterus ENT: normocephalic atraumatic, no oropharyngeal lesions, moist mucosa, dry oral mucosa Neck: supple, symmetric, no JVD, no thyromegaly, no lymphadenopathy, no carotid bruit, JVD Heart: RRR, no murmur, no gallops, no rubs, normal peripheral pulses, irregular , diminshed peripheral pulses, murmur present, II/IV, III/IV Respiratory: CTAB, no wheezes, no rales, no ronchi, normal chest expansion, no tachypnea, normal percussion, rales, rhonchi, tachypneic, wheezes Gastrointestinal: soft, non-tender, non-distended, normal bowel sounds, no palpable masses, no hepatomegaly, no splenomegaly, no bruit, no guarding, no rigidity, tender to palpation, distended, diminished bowl sounds, voluntary guarding Extremities: no cyanosis, no clubbing, no edema, 1+ LE edema, 2+ LE edema, clubbing Skin: normal turgor, no lesions, no rashes, tenting Musculoskeletal: normal tone, normal strength, no muscle wasting, generalized weakness, diffuse muscle atrophy Hosp A/P (1) DONTA (acute kidney injury) Code(s): N17.9 - ACUTE KIDNEY FAILURE, UNSPECIFIED Status: Acute (2) CAD (coronary artery disease) Code(s): I25.10 - ATHSCL HEART DISEASE OF [place] CORONARY ARTERY W/O ANG PCTRS Status: Acute (3) DM (diabetes mellitus) Code(s): E11.9 - TYPE 2 DIABETES MELLITUS WITHOUT COMPLICATIONS Status: Acute (4) HLD (hyperlipidemia) Code(s): E78.5 - HYPERLIPIDEMIA, UNSPECIFIED Status: Acute (5) HTN (hypertension) Code(s): I10 - ESSENTIAL (PRIMARY) HYPERTENSION Status: Acute - Plan Apreciate Nehrology input, adjust Blood pressure medications to keep the SBP below 160. d/c planning as per nephrology.
--- NOTE | 2019-06-08 12:05 | PRG ---
DATE OF SERVICE: 06/08/2019 SUBJECTIVE: Patient was seen and examined at bedside and overnight events noted. Patient denies any shortness of breath or chest pain or palpitation. No history of nausea or vomiting or diarrhea or fever or chills or cramps. OBJECTIVE: GENERAL: This is a well-built male, in no acute distress. VITAL SIGNS: Temperature . Heart rate 62. Respiratory rate 18. Blood pressure 186/84. HEENT: Atraumatic, normocephalic. Oral mucosa is moist NECK: Supple. CARDIOVASCULAR: S1, S2 heard. Rate and rhythm regular. RESPIRATORY: Clear to auscultation. GASTROINTESTINAL: Abdomen is soft. MUSCULOSKELETAL: No tenderness. No edema. DERMATOLOGIC: No skin rash. NEUROLOGIC: Alert and awake and oriented X3. No focal neurologic deficits. Moving all the extremities. PSYCHIATRIC: Mood and affect normal. LABORATORY DATA: Potassium 3.7, BUN is 29, and creatinine 2.6. ASSESSMENT AND PLAN: 1. Acute kidney injury on chronic kidney disease stage 4, stable. Creatinine seems like his baseline. 2. Heavy proteinuria, most likely from diabetes. Might consider renal biopsy. 3. Vitamin D deficiency . 4. Edema. 5. Hypertension. We will titrate medication. We will stop IV fluids. The patient reports that hypertension is secondary to pain. We will follow. Job ID: [id number]
[2019-06-08] MEDS: HumaLOG 300 UNITS/3 ML VIAL SC PRN (12:30)
[2019-06-08] MEDS: Acetaminophen/Codeine 30-300mg Tablet PO PRN (17:18)
[2019-06-09] MEDS: Cephalexin 250 MG CAP PO SCH ×2 (09:01→12:14)
[2019-06-09] MEDS: Carvedilol 25 MG TAB PO SCH (09:01)
[2019-06-09] MEDS: Amlodipine 5 MG TAB PO SCH (09:01)
[2019-06-09] MEDS: Heparin 5,000 UNITS/ML VIAL SC SCH (09:01)
[2019-06-09] MEDS ORDERED: Gabapentin 300 MG CAP PO SCH ×2 (09:30→21:00)
[2019-06-09] MEDS ORDERED: NIFEdipine XL 60 MG TAB PO SCH (09:30)
[2019-06-09 10:42] LABS: Anion Gap 11 mmol/L (10-20); BUN (Urea Nitrogen) 25 mg/dL (8.4-25.7); Calc. Creatinine Clearance 43 mL/min (70-130); Calcium 8.5 mg/dL (7.8-10.44); Carbon Dioxide 23 mmol/L (22-29); Chloride 106 mmol/L (98-107); Estimated GFR-MDRD 27; Glucose 146 mg/dL (70-105); Sodium 136 mmol/L (136-145)
--- NOTE | 2019-06-09 11:02 | PRG ---
DATE OF SERVICE: 06/09/2019 SUBJECTIVE: Patient was seen and examined at bedside and overnight events noted. Patient denies any shortness of breath or chest pain or palpitation. No history of nausea or vomiting or diarrhea or fever or chills or cramps. OBJECTIVE: GENERAL: This is a well-built male, in no apparent distress. VITAL SIGNS: Temperature 97.7, heart rate 62, respiratory rate , blood pressure 186/82. HEENT: Atraumatic, normocephalic. Oral mucosa is moist NECK: Supple. CARDIOVASCULAR: S1, S2 heard. Rate and rhythm regular. RESPIRATORY: Clear to auscultation. GASTROINTESTINAL: Abdomen is soft. MUSCULOSKELETAL: No tenderness. No edema. DERMATOLOGIC: No skin rash. NEUROLOGIC: Alert and awake and oriented X3. No focal neurologic deficits. Moving all the extremities. PSYCHIATRIC: Mood and affect normal. LABORATORY DATA: Not done today. ASSESSMENT AND PLAN: 1. Acute kidney injury, on chronic kidney disease stage 4, stable. 2. Heavy proteinuria. 3. Vitamin D deficiency. 4. Secondary hyperparathyroidism. 5. Edema. 6. Hypertension. We will stop amlodipine and start on Procardia. Job ID: [id number]
--- NOTE | 2019-06-09 13:21 | PDOC.HOSPP ---
- Subjective Encounter Date: 06/09/19 Encounter Time: 11:10 Subjective: Pain in left leg... Burning in right thigh. - Objective Vital Signs & Weight: Vital Signs (12 hours) Temp Pulse Resp BP BP BP Pulse Ox 06/09/19 12:14 60 156/75 H 06/09/19 11:32 97.8 F 64 18 156/75 H 97 06/09/19 10:34 121/63 06/09/19 09:01 60 186/62 H 06/09/19 09:00 97 06/09/19 08:17 97.7 F 60 20 186/82 H 97 06/09/19 04:00 98.2 F 69 20 159/80 H 95 Weight Admit Weight 205 lb 4 oz Weight 205 lb 4 oz I&O: 06/08/19 06/09/19 06/10/19 06:59 06:59 06:59 Intake Total 2370 185 Balance 2370 185 Result Diagrams: 06/06/19 10:37 06/09/19 09:57 Additional Labs: Accuchecks 06/09/19 06/08/19 06/08/19 04:10 18:54 16:34 POC Glucose 119 H 130 H 203 H Hospitalist ROS - Medication Medications: Active Medications Generic Name Dose Route Start Last Admin Trade Name Freq PRN Reason Stop Dose Admin Acetaminophen/Codeine Phosphate 1 tab 06/05/19 10:52 06/08/19 17:18 Tylenol #3 PO 1 tab DAILY PRN Administration Pain Hydrocodone Bitart/Acetaminophen 1 tab 06/04/19 19:44 06/07/19 20:32 [place] 5/325 PO 1 tab Q4H PRN Administration Moderate Pain (4-6) Carvedilol 25 mg 06/07/19 17:00 06/09/19 09:01 Coreg PO 25 mg BID-WM JOSIAS Administration Cephalexin 250 mg 06/05/19 09:00 06/09/19 12:14 Keflex PO 250 mg QID JOSIAS Administration Ergocalciferol 1.25 mg 06/06/19 09:00 06/06/19 09:22 Drisdol PO 1.25 mg Q7DAYS JOSIAS Administration Heparin Sodium (Porcine) 5,000 units 06/05/19 09:00 06/09/19 09:01 Heparin SC 5,000 units BID JOSIAS Administration Hydralazine HCl 20 mg 06/04/19 21:07 06/07/19 04:37 Apresoline SLOW IVP 20 mg Q4H PRN Administration SBP >190 or DBP >100 Insulin Human Lispro 0 units 06/04/19 19:48 06/08/19 12:30 Humalog SC 3 unit .MILD SLIDING SCALE PRN Administration Mild Correctional Scale - Exam General Appearance: NAD Eye: anicteric sclera Neck: no JVD Heart: RRR Respiratory: CTAB Gastrointestinal: soft Extremities: 1+ LE edema Skin - other findings: wound in meddle, anterior aspect of left leg.. Neurological: no new deficit Hosp A/P (1) Wound of left leg Code(s): S81.802A - UNSPECIFIED OPEN WOUND, LEFT LOWER LEG, INITIAL ENCOUNTER Status: Acute (2) Peripheral neuropathy Code(s): G62.9 - POLYNEUROPATHY, UNSPECIFIED Status: Acute Plan: Started on Gabapentin.. (3) DONTA (acute kidney injury) Code(s): N17.9 - ACUTE KIDNEY FAILURE, UNSPECIFIED Status: Acute Plan: Kidney function is at baseline.. (4) CAD (coronary artery disease) Code(s): I25.10 - ATHSCL HEART DISEASE OF [place] CORONARY ARTERY W/O ANG PCTRS Status: Acute (5) DM (diabetes mellitus) Code(s): E11.9 - TYPE 2 DIABETES MELLITUS WITHOUT COMPLICATIONS Status: Acute (6) HTN (hypertension) Code(s): I10 - ESSENTIAL (PRIMARY) HYPERTENSION Status: Acute Plan: BP med being adjusted .. (7) Obesity (BMI 35.0-39.9 without comorbidity) Code(s): E66.9 - OBESITY, UNSPECIFIED Status: Acute - Plan Continue current therapy. F/U with Nephrology.
[2019-06-09] MEDS: HumaLOG 300 UNITS/3 ML VIAL SC PRN (13:28)
--- NOTE | 2019-06-09 14:05 | EKG ---
Test Reason : Blood Pressure : / mmHG Vent. Rate : 067 BPM Atrial Rate : 067 BPM P-R Int : 170 ms QRS Dur : 096 ms QT Int : 396 ms P-R-T Axes : 030 023 072 degrees QTc Int : 418 ms Normal sinus rhythm Possible Left atrial enlargement Inferior infarct , age undetermined Anterior infarct , age undetermined Abnormal ECG Confirmed by KAVEH HAYES ([id number]), desk editor ROMELIA SOUZA ([id number]) on 06/09/2019 2:04:50 PM Referred By: Confirmed By:KAVEH HAYES
[2019-06-09] MEDS ORDERED: Gabapentin 300 MG CAP PO PRN (14:56)
[2019-06-09 15:27] VITALS: TEMP 97.5
--- NOTE | 2019-06-09 16:08 | PDOC.EVN ---
Event Note - Event Note Event Note: Discharge Summary: Admitting Date: 06/04/2019 Discharge date: 06/09/2019 Admitting diagnosis: Hypertensive emergency, Acute kidney injury, left leg cellulitis, hyperlipidemia, uncontrolled diabetes mellitus,Coronary artery disease. Soft Shoe Dancer: Rose Mary Cortés Course of hospitalization: uncomplicated. Responded well to management. Discharge medications: see discharge medications reconciliation sheet. Prcedures: Echocardiogram, EKG, Venous doppler of lower extremities, chest X- Ray, Kidney ultrasound. To follow up with PCP and Dr. Cortés. For todays Phyical Examination, report to [facility] notes section. Discharge Time: 32 minutes.
[2019-06-09 16:11] VITALS: BP 138/78
[2019-06-09] MEDS ORDERED: Atorvastatin Calcium 40 MG TAB PO SCH (21:00)
[2019-06-09] MEDS ORDERED: Metoprolol Tartrate 25 MG TAB PO SCH (21:00)
[2019-06-09] MEDS ORDERED: metFORMIN 500 MG TAB PO SCH (21:00)
[2019-06-10] MEDS ORDERED: NIFEdipine XL 60 MG TAB PO SCH ×2 (09:00)
[2019-06-10 17:07] LABS: ANA Symphony (Qualitative) Negative (Negative); ANA Symphony (Quantitative) 0.1 Ratio (< 0.7 Negative); dsDNA IgG Antibody Less than 0.5 IU/mL (<10 Negative)
[2019-06-10 17:30] LABS: EliA Vaculitis New Method **** NEW METHOD ****; Glomerular Basemt Membrane Ab Less than 1.9 EliAU/mL (<7 Negative)
[2019-06-12 03:07] LABS: Kappa Lambda Light Chain Ratio 1.51 (0.26-1.65); Kappa Light Chains 75.9 mg/L (3.3-19.4); Lambda Light Chain 50.1 mg/L (5.7-26.3)
[2019-06-12 14:09] LABS: Cytoplasmic (C-ANCA) <1:20 titer (Neg:<1:20); Myeloperoxidase AutoAbs <9.0 U/mL (0.0-9.0); Perinuclear (P-ANCA) <1:20 titer (Neg:<1:20); Proteinase-3 AutoAbs Less than 3.5 U/mL (0.0-3.5)
== END 2019-06-09 16:43 | disposition home or self-care (01) | DRG 683 ==
LOC: ERS 13:50 → T4-B 19:10
PROVIDERS: ADMIT Internal Medicine; ATTEND Internal Medicine
DX: N17.9 Acute kidney failure, unspecified (principal); I16.1 Hypertensive emergency; E87.1 Hypo-osmolality and hyponatremia; L03.116 Cellulitis of left lower limb; Z23 Encounter for immunization; E78.00 Pure hypercholesterolemia, unspecified; F17.210 Nicotine dependence, cigarettes, uncomplicated; E78.5 Hyperlipidemia, unspecified; E11.65 Type 2 diabetes mellitus with hyperglycemia; I25.10 Atherosclerotic heart disease of native coronary artery without angina pectoris; E66.9 Obesity, unspecified; I12.9 Hypertensive chronic kidney disease with stage 1 through stage 4 chronic kidney disease, or unspecified chronic kidney disease; N18.4 Chronic kidney disease, stage 4 (severe); E11.22 Type 2 diabetes mellitus with diabetic chronic kidney disease; D63.1 Anemia in chronic kidney disease; E55.9 Vitamin D deficiency, unspecified; N25.81 Secondary hyperparathyroidism of renal origin; E11.42 Type 2 diabetes mellitus with diabetic polyneuropathy; R80.9 Proteinuria, unspecified; Z95.1 Presence of aortocoronary bypass graft; Z68.35 Body mass index [BMI] 35.0-35.9, adult; Z79.84 Long term (current) use of oral hypoglycemic drugs; Z79.899 Other long term (current) drug therapy
CPT/HCPCS: 36415; 36416; 71046; 76770; 80048; 80053; 82306; 82570; 82728; 83036; 83516; 83520; 83540; 83550; 83605; 83880; 83883; 83970; 84156; 84484; 85025; 85652; 86038; 86140; 86225; 86256; 93005; 93306; 93970; 96361; 96374; J0360; J1644; J2270

== ENCOUNTER 2020-03-25 13:29 | Inpatient (IN) | payer BC, OTHER ==
[2020-03-25 14:27] LABS: ALT (SGPT) 7 U/L (8-55); AST (SGOT) 11 U/L (5-34); Albumin 2.8 g/dL (3.5-5.0); Alkaline Phosphatase 79 U/L (40-110); Anion Gap 11 mmol/L (10-20); BUN (Urea Nitrogen) 46 mg/dL (8.4-25.7); Bilirubin, Total 0.2 mg/dL (0.2-1.2); Calc. Creatinine Clearance 0 mL/min (70-130); Calcium 7.2 mg/dL (7.8-10.44); Carbon Dioxide 20 mmol/L (22-29); Chloride 110 mmol/L (98-107); Estimated GFR-MDRD 9; Globulin 3.2 g/dL (2.4-3.5); Glucose 185 mg/dL (70-105); Magnesium 1.5 mg/dL (1.6-2.6); Potassium 4.4 mmol/L (3.5-5.1); Sodium 137 mmol/L (136-145)
[2020-03-25] MEDS ORDERED: Nitroglycerin 2% Ointment 1 INCH/1 GM Packet ONE (16:36)
--- NOTE | 2020-03-25 16:53 | HP ---
PRIMARY CARE PROVIDER: Yamel Jung NP LATHE TURNER: Dr. Cortés. The patient states after routine lab work, he was sent to the emergency room by Dr. Cortés. He states he feels fine. CHIEF COMPLAINT: Abnormal lab. He was genuinely surprised that he was being asked to spend the night. PAST MEDICAL HISTORY: Hypertension, diabetes mellitus type 2 with chronic kidney disease 4, and coronary artery disease, post coronary artery bypass graft in the past. PAST SURGICAL HISTORY: Coronary artery bypass graft, left shoulder surgery, and right shoulder surgery. MEDICATIONS: He did not bring his medicines. He does not know the name, he says he is only on about 8. Last admitted, he was on metformin 1000 mg twice a day, gabapentin 300 mg twice a day, Drisdol 1.25 mg every 7 days, Coreg 25 mg twice a day, benzonatate 200 mg t.i.d. p.r.n., Lipitor 40 mg at bedtime, and Tylenol with codeine. ALLERGIES: NO KNOWN DRUG ALLERGIES. FAMILY HISTORY: No one on hemodialysis. Mother and father both with diabetes. No coronary artery disease. SOCIAL HISTORY: . Full code status. , Wen is next of kin for decision making. He quit smoking three years ago. Drinks insignificant amounts of alcohol. No illicit drugs. REVIEW OF SYSTEMS: GENERAL: He has a very occasional mild, brief headache. No dizziness or fainting. EYES: No double vision, blurred vision, or flashing lights. CARDIAC: No chest pain, orthopnea, or paroxysmal nocturnal dyspnea. RESPIRATIONS: No cough, wheezing, or asthma. GASTROINTESTINAL: No nausea, vomiting, diarrhea, constipation, melena, or abdominal pain. GENITOURINARY: He makes urine. No pain. No blood. MUSCULOSKELETAL: Minimal swelling in his legs. No pain in his joints or muscles. PSYCHIATRIC: No anxiety or depression, etc. NEUROLOGICAL: No strokes, seizures, or focal weakness. SKIN: No bruising, bleeding, or rash. HEMATOLOGIC/LYMPHATIC: No tender or swollen lymph nodes in axilla, inguinal, or cervical area. PHYSICAL EXAMINATION: GENERAL: He is a pleasant, cooperative, alert gentleman. VITAL SIGNS : Blood pressure in the ER was elevated at 217/102, pulse was 75, respirations 18, temperature 98.2, and O2 saturations 99 to 100 on room air. HEENT: Examination of his head, eyes, ears, nose, and throat revealed pupils are equal, round, and reactive to light. Extraocular movements are intact. Sclerae are white. Tympanic membranes are clear. Nose, clear. Oral mucous membranes are wet. Dental hygiene is good. NECK: Supple without jugular venous distention, adenopathy, thyromegaly, or bruits. CHEST: Clear to auscultation and percussion. HEART: Regular rate and rhythm. First and second heart sounds are clear. There are no murmurs or gallops. ABDOMEN: Soft. Bowel sounds are normal. There is no hepatosplenomegaly. No mass. No rebound. No bruits. EXTREMITIES: Reveal no cyanosis, clubbing, or edema. SKIN: Warm and dry without bruises or rash. PULSES: Carotid, radial, femoral, and dorsalis pedis pulses are intact and symmetric. HEMATOLOGIC/LYMPHATIC: No tender or swollen lymph nodes in axilla, inguinal, or cervical area. NEUROLOGIC: Cranial nerves 2 through 12 are intact. Deep tendon reflexes markedly diminished in legs, but symmetric. Toes downgoing. DIAGNOSTIC STUDIES: EKG pending. We will review when available. No chest x-ray has been done. We will consider one. LABORATORY DATA: Comprehensive metabolic profile; sodium 137, potassium 4.4, chloride 110, CO2 of 20, BUN 46, creatinine 6.15, glucose 185, calcium 7.2, magnesium 1.5, and albumin 2.8. ADMITTING DIAGNOSES: 1. [id number] kidney disease. 2. Diabetes mellitus type 2, non-insulin dependent with chronic kidney disease. 3. Coronary artery disease, post coronary artery bypass graft. 4. Hypertension. 5. Dyslipidemia. PLAN: 1. Bilateral renal ultrasound. 2. Accu-Cheks sliding scale. 3. Find and collect home medicines. 4. Start home medicines when available if appropriate with renal dosing. 5. Contact Dr. Cortés to find what else he wants to do with this patient at this time. COMMENT: The patient has developed end-stage renal disease, chronic kidney disease 5. He has no acute hemodialysis criteria. No evidence of volume overload, hyperkalemia, pericardial friction rub, acidosis, or arnaud uremic symptoms. Job ID: [id number]
--- NOTE | 2020-03-25 18:32 | ULT ---
BILATERAL RENAL ULTRASOUND: 03/25/20 HISTORY: Acute renal insufficiency. FINDINGS: The right kidney measures 11.7 cm in length and the left kidney measures 12.1 cm in length. No focal mass or hydronephrosis is seen on either side. The urinary bladder is unremarkable with a volume of 3 27 mL. Bilateral ureteral jets are present. IMPRESSION: No evidence of high grade obstruction. POS: OFF
[2020-03-25] MEDS ORDERED: Acetaminophen 325 MG TAB PO PRN (18:35)
[2020-03-25] MEDS ORDERED: Dextrose 50% Abboject 50 ML SYRINGE SLOW IVP PRN (18:35)
[2020-03-25] MEDS ORDERED: HumaLOG 300 UNITS/3 ML VIAL SC PRN ×2 (18:35→20:08)
[2020-03-25] MEDS ORDERED: Zolpidem Tartrate 5 MG TAB PO PRN (18:35)
[2020-03-25] MEDS ORDERED: Dextrose 5% in Water 1,000 ML IV PRN (18:35)
[2020-03-25 18:46] VITALS: BMI 35.1
--- NOTE | 2020-03-25 19:18 | CON ---
DATE OF CONSULTATION: 03/25/2020 CONSULTING PHYSICIAN: Dr. Carlisle. REASON FOR CONSULTATION: Abnormal labs. HISTORY OF PRESENT ILLNESS: This is a 59-year-old male with history of type 2 diabetes, hypertension, chronic kidney disease, came to the hospital with abnormal labs. The patient had lab work done last week, was found to have abnormal labs and was advised to come to the hospital. He complains of puffiness in the eyes, but no shortness of breath. No chest pain or palpitation. PAST MEDICAL HISTORY: Positive for hypertension, diabetes, coronary artery disease. PAST SURGICAL HISTORY: CABG, bilateral shoulder surgery. HOME MEDICATIONS: Reviewed. ALLERGIES: NO KNOWN DRUG ALLERGIES. FAMILY HISTORY: No history of kidney disease. SOCIAL HISTORY: No smoking, alcohol, or illicit drug abuse. REVIEW OF SYSTEMS: The following complete review of systems was negative, unless otherwise mentioned in the HPI or below: Constitutional: Weight loss or gain, ability to conduct usual activities. Skin: Rash, itching. Eyes: Double vision, pain. ENT/Mouth: Nose bleeding, neck stiffness, pain, tenderness. Cardiovascular: Palpitations, dyspnea on exertion, orthopnea. Respiratory: Shortness of breath, wheezing, cough, hemoptysis, fever or night sweats. Gastrointestinal: Poor appetite, abdominal pain, heartburn, nausea, vomiting, constipation, or diarrhea. Genitourinary: Urgency, frequency, dysuria, nocturia. Musculoskeletal: Pain, swelling. Neurologic/Psychiatric: Anxiety, depression. Allergy/Immunologic: Skin rash, bleeding tendency. PHYSICAL EXAMINATION: GENERAL: This is a well-built male, in no apparent distress. VITAL SIGNS: Temperature 98.2, pulse 74, respiratory rate 18, blood pressure 217/102. HEENT: Atraumatic and normocephalic. Oral mucosa is moist. NECK: Supple. CV: S1 and S2 heard. Rate and rhythm normal. RESPIRATORY: Clear. GI: Abdomen is soft. MUSCULOSKELETAL: DERMATOLOGIC: No skin rash. NEUROLOGIC: Alert and awake. PSYCHIATRIC: Normal mood and affect. LABORATORY DATA: Potassium 4.4, BUN is 46, and creatinine is 6.15. ASSESSMENT AND PLAN: 1. Acute kidney injury on chronic kidney disease, stage 5. Worsening labs. Most likely progressing to end-stage renal disease. Plan is to hydrate him, recheck renal ultrasound. If no obstruction and if no improvement with hydration, the patient might need dialysis. 2. History of hypertension. Titrate medications. 3. Acidosis. 4. Anemia of chronic disease. 5. Edema. 6. Hypoalbuminemia. 7. Proteinuria. 8. Diabetic nephropathy. The patient might be progressing to end-stage renal disease and might need dialysis. Plan is to hydrate him and check a renal ultrasound for today. Avoid nephrotoxins and we will follow. Thank you for the consult. Job ID: [id number]
[2020-03-25 19:29] LABS: #Basophils 0.1 thou/uL (0.0-0.2); #Eosinphils 0.3 thou/uL (0.0-0.7); #Lymphocytes 1.9 thou/uL (1.20-3.40); #Monocytes 0.4 thou/uL (0.11-0.59); #Neutrophils 3.7 thou/uL (1.40-6.50); %Basophils 1.1 % (0.0-1.0); %Monocytes 6.9 % (0.0-10.0); Hemoglobin 10.2 g/dL (14.0-18.0); Mean Corpuscular HGB CONC 33.7 g/dL (32.0-36.0); Mean Corpuscular Hemoglobin 27.2 pg (27.0-31.0); Mean Corpuscular Volume 80.7 fL (78.0-98.0); Mean Platelet Volume 7.7 fL (7.4-10.4); Platelet Count 235 thou/uL (130-400); RBC Distribution Width 13.2 % (11.5-14.5); Red Blood Cell (RBC) Count 3.74 mill/uL (4.70-6.10); White Blood Cell (WBC) Count 6.4 thou/uL (4.8-10.8)
[2020-03-25] MEDS ORDERED: hydrALAZINE 20 MG/ML VIAL SLOW IVP PRN (20:07)
[2020-03-25] MEDS: Sodium Chloride 0.9% 1,000 ML IV SCH (20:22)
[2020-03-25] MEDS ORDERED: NIFEdipine XL 60 MG TAB PO SCH (22:45)
[2020-03-26] MEDS: Sodium Chloride 0.9% 1,000 ML IV SCH ×3 (05:43→13:05)
[2020-03-26 06:26] LABS: Anion Gap 12 mmol/L (10-20); BUN (Urea Nitrogen) 45 mg/dL (8.4-25.7); Calc. Creatinine Clearance 19 mL/min (70-130); Calcium 7.1 mg/dL (7.8-10.44); Carbon Dioxide 20 mmol/L (22-29); Chloride 112 mmol/L (98-107); Estimated GFR-MDRD 10; Glucose 139 mg/dL (70-105); Sodium 140 mmol/L (136-145)
[2020-03-26] MEDS ORDERED: Ergocalciferol 1.25 MG(50,000 UNITS) CAP PO SCH (09:00)
[2020-03-26] MEDS ORDERED: hydrALAZINE 25 MG TAB PO SCH ×4 (09:00→13:00)
[2020-03-26] MEDS: NIFEdipine XL 60 MG TAB PO SCH ×2 (09:12→21:02)
[2020-03-26] MEDS: Atorvastatin Calcium 40 MG TAB PO SCH (09:12)
[2020-03-26 09:38] LABS: Bacteria/HPF None Seen HPF (None Seen); Bilirubin Negative (Negative); Blood, Urine Trace (Negative); Clarity Clear (Clear); Glucose, Urine (Dipstick) 100 mg/dL (Negative); Ketone, Urine Negative (Negative); Leukocyte Negative Leu/uL (Negative); Nitrite Negative (Negative); Protein, Urine (Dipstick) 300 mg/dL (Neg-Trace); RBC/HPF 0-3 HPF (0-3); Specific Gravity, Urine 1.007 (1.002-1.036); Squamous Epithelial 0-3 HPF (0-3); Urobilinogen Normal mg/dL (Less than 2); WBC/HPF 0-3 HPF (0-3)
--- NOTE | 2020-03-26 10:07 | PDOC.HOSPP ---
- Subjective Encounter Date: 03/26/20 Encounter Time: 10:05 Subjective: no complaints - Objective Vital Signs & Weight: Vital Signs (12 hours) Temp Pulse Resp BP BP BP Pulse Ox 03/26/20 09:12 79 168/75 H 03/26/20 09:11 79 168/75 H 03/26/20 07:42 98.6 F 81 18 171/83 H 98 03/26/20 04:18 97.7 F 75 16 158/80 H 98 03/26/20 01:00 156/76 H 03/26/20 00:00 97.9 F 85 18 180/80 H 98 03/25/20 23:40 91 162/75 H Weight Weight 204 lb 7 oz Result Diagrams: 03/25/20 19:20 03/26/20 05:40 Additional Labs: Accuchecks 03/26/20 03/25/20 04:22 20:04 POC Glucose 165 H 86 Hospitalist ROS - Medication Medications: Active Medications Generic Name Dose Route Start Last Admin Trade Name Freq PRN Reason Stop Dose Admin Acetaminophen 650 mg 03/25/20 18:35 03/25/20 23:59 Tylenol PO 650 mg Q4H PRN Administration Headache/Fever/Mild Pain (1-3) Atorvastatin Calcium 40 mg 03/26/20 09:00 03/26/20 09:12 Lipitor PO 40 mg DAILY JOSIAS Administration Ergocalciferol 1.25 mg 03/26/20 09:00 03/26/20 09:13 Drisdol PO Not Given Q7DAYS [facility] Hydralazine HCl 10 mg 03/25/20 20:07 03/25/20 20:14 Apresoline SLOW IVP 10 mg Q4H PRN Administration SBP Greater Than 180 Insulin Human Lispro 0 units 03/25/20 18:35 03/26/20 07:51 Humalog SC 2 unit .MILD SLIDING SCALE PRN Administration Mild Correctional Scale Nifedipine 60 mg 03/26/20 09:00 03/26/20 09:12 Procardia Xl PO 60 mg BID JOSIAS Administration - Exam General Appearance: awake alert Neck: no JVD Heart: RRR, no murmur Respiratory: CTAB Gastrointestinal: soft, normal bowel sounds Extremities: no edema Hosp A/P (1) Acute on chronic renal failure Code(s): N17.9 - ACUTE KIDNEY FAILURE, UNSPECIFIED; N18.9 - CHRONIC KIDNEY DISEASE, UNSPECIFIED Status: Acute Qualifiers: Acute renal failure type: unspecified Chronic kidney disease stage: stage 5 , not on chronic dialysis Qualified Code(s): N17.9 - Acute kidney failure, unspecified; N18.5 - Chronic kidney disease, stage 5 (2) DM type 2 causing CKD stage 4 Code(s): E11.22 - TYPE 2 DIABETES MELLITUS W DIABETIC CHRONIC KIDNEY DISEASE; N18.4 - CHRONIC KIDNEY DISEASE, STAGE 4 (SEVERE) Status: Chronic Qualifiers: Diabetes mellitus longterm insulin use: without longterm use Qualified Code(s): E11.22 - Type 2 diabetes mellitus with diabetic chronic kidney disease ; N18.4 - Chronic kidney disease, stage 4 (severe) (3) CAD (coronary artery disease) Code(s): I25.10 - ATHSCL HEART DISEASE OF [place] CORONARY ARTERY W/O ANG PCTRS Status: Acute Qualifiers: Coronary Disease-Associated Artery/Lesion type: [place] artery [place] vs. transplanted heart: [place] heart Associated angina: without angina Qualified Code(s): I25.10 - Atherosclerotic heart disease of [place] coronary artery without angina pectoris (4) HLD (hyperlipidemia) Code(s): E78.5 - HYPERLIPIDEMIA, UNSPECIFIED Status: Chronic (5) HTN (hypertension) Code(s): I10 - ESSENTIAL (PRIMARY) HYPERTENSION Status: Chronic Qualifiers: Hypertension type: essential hypertension Qualified Code(s): I10 - Essential (primary) hypertension - Plan cont iv fluids serial creatinine selected home meds
--- NOTE | 2020-03-26 11:45 | PRG ---
DATE OF SERVICE: 03/26/2020 SUBJECTIVE: Patient was seen and examined at bedside and overnight events noted. Patient denies any shortness of breath or chest pain or palpitation. No history of nausea or vomiting or diarrhea or fever or chills or cramps. OBJECTIVE: GENERAL: This is an obese male, in no apparent distress. VITAL SIGNS: Temperature 98.6, pulse 81, respiratory rate 19, blood pressure 171/80. HEENT: Atraumatic, normocephalic. Oral mucosa is moist. NECK: Supple. CARDIOVASCULAR: S1, S2 heard. Rate and rhythm regular. RESPIRATORY: Clear to auscultation. GASTROINTESTINAL: Abdomen is soft. MUSCULOSKELETAL: No tenderness. No edema. DERMATOLOGIC: No skin rash. NEUROLOGIC: Alert and awake and oriented x3. No focal neurologic deficits. Moving all the extremities. PSYCHIATRIC: Mood and affect normal. LABORATORY DATA: Potassium 4.0, BUN is 45, and creatinine is 5.5. ASSESSMENT AND PLAN: 1. Acute kidney injury on chronic kidney disease, stage 5. Dialysis with slight improvement, most likely from hydration. We will continue on hydration one more day, and if not better, might have to think about renal replacement therapy. 2. Hypertension. 3. Acidosis. 4. Edema. 5. Hypoalbuminemia. 6. Proteinuria. 7. Diabetic nephropathy. Recheck urine protein to creatinine ratio. Continue IV fluids. We will reduce it to 50 mL/h. We will follow. Job ID: [id number]
[2020-03-26 11:49] LABS: Creatinine, Urine 55.86 mg/dL (63-166)
[2020-03-26 19:08] LABS: SARS-CoV-2 MS2 Positive; SARS-CoV-2 N Gene Negative; SARS-CoV-2 S Gene Negative; SARS-CoV-2 by NAA Not Detected (NotDetected); SARS-CoV-2 orf1ab Negative
[2020-03-26] MEDS: hydrALAZINE 25 MG TAB PO SCH (21:01)
[2020-03-27 05:54] LABS: #Eosinphils 0.3 thou/uL (0.0-0.7); #Lymphocytes 1.4 thou/uL (1.20-3.40); #Monocytes 0.5 thou/uL (0.11-0.59); #Neutrophils 4.6 thou/uL (1.40-6.50); %Basophils 0.4 % (0.0-1.0); %Eosinophils 4.8 % (0.0-10.0); %Lymphocytes 20.7 % (21.0-51.0); %Neutrophils 67.1 % (42.0-75.0); Hemoglobin 11.1 g/dL (14.0-18.0); Mean Corpuscular HGB CONC 33.3 g/dL (32.0-36.0); Mean Corpuscular Hemoglobin 27.4 pg (27.0-31.0); Mean Corpuscular Volume 82.3 fL (78.0-98.0); Mean Platelet Volume 7.6 fL (7.4-10.4); Platelet Count 251 thou/uL (130-400); RBC Distribution Width 13.2 % (11.5-14.5); Red Blood Cell (RBC) Count 4.06 mill/uL (4.70-6.10); White Blood Cell (WBC) Count 6.8 thou/uL (4.8-10.8)
[2020-03-27 06:12] LABS: Anion Gap 11 mmol/L (10-20); BUN (Urea Nitrogen) 40 mg/dL (8.4-25.7); Calc. Creatinine Clearance 18 mL/min (70-130); Calcium 7.5 mg/dL (7.8-10.44); Carbon Dioxide 18 mmol/L (22-29); Chloride 112 mmol/L (98-107); Estimated GFR-MDRD 10; Glucose 129 mg/dL (70-105); Potassium 4.1 mmol/L (3.5-5.1); Sodium 137 mmol/L (136-145)
[2020-03-27] MEDS: Sodium Chloride 0.9% 1,000 ML IV SCH (06:26)
[2020-03-27] MEDS: NIFEdipine XL 60 MG TAB PO SCH (08:49)
[2020-03-27] MEDS: hydrALAZINE 25 MG TAB PO SCH (08:49)
[2020-03-27] MEDS: Atorvastatin Calcium 40 MG TAB PO SCH (08:50)
--- NOTE | 2020-03-27 11:35 | DIS ---
DATE OF ADMISSION: 03/25/2020 DATE OF DISCHARGE: 03/27/2020 PRIMARY CARE PHYSICIAN: None. GMAT INSTRUCTOR: Dr. Cortés, Nephrology. DISPOSITION: Discharged to home. FINAL DIAGNOSES: Acute on chronic kidney failure, diabetes mellitus with chronic kidney disease 4, hypertension, and coronary artery disease. DISCHARGE MEDICATIONS: 1. Sitagliptin 100 mg a day. 2. Vitamin D2, 50,000 units every 7 days. 3. Neurontin 300 mg twice a day. 4. Lipitor 40 mg a day. 5. Nifedipine 60 mg twice a day. 6. Lasix 40 mg a day. 7. Hydralazine 50 mg twice a day. 8. Tylenol No. 3 with Codeine 1 every 6 hours as needed for pain. ALLERGIES: NO KNOWN DRUG ALLERGIES. CODE STATUS: Full. PENDING AT THE TIME OF DISCHARGE: Nothing. DIET: Renal. CONSULTATIONS: Dr. Cortés. PROCEDURES: None. HOSPITAL COURSE: The patient referred to the emergency room by Dr. Cortés after having his creatinine jumped from 3 to 6. He was placed in the hospital on IV fluids. He had a renal ultrasound done, showed no hydronephrosis etc., He had serial creatinines done for 3 days; 6.15, 5.59, 5.62. He had a mild acidosis. He was advised by Dr. Cortés that he needed hemodialysis. The patient declined. He is being discharged to follow up with Dr. Cortés in the clinic. Job ID: [id number] MTDD
[2020-03-27 12:03] VITALS: BP 148/72; TEMP 97.9
--- NOTE | 2020-03-27 12:18 | PRG ---
DATE OF SERVICE: 03/27/2020 SUBJECTIVE: Patient was seen and examined at bedside and overnight events noted. Patient denies any shortness of breath or chest pain or palpitation. No history of nausea or vomiting or diarrhea or fever or chills or cramps. OBJECTIVE: General: This is a well-built male, in no apparent distress. Vital Signs: Temperature 97.7. Heart rate 80. Respiratory rate . Blood pressure 143/72. HEENT: Atraumatic, normocephalic. Oral mucosa is moist. Neck: Supple. Cardiovascular: S1, S2 heard. Rate and rhythm regular. Respiratory: Clear to auscultation. Gastrointestinal: Abdomen is soft. Musculoskeletal: No tenderness. No edema. Dermatologic: No skin rash. Neurologic: Alert and awake and oriented x3. No focal neurologic deficits. Moving all the extremities. Psychiatric: Mood and affect normal. LABORATORY DATA: Potassium 4.1, BUN is 40, creatinine is 5.6. ASSESSMENT AND PLAN: 1. Chronic kidney disease stage 5 with no significant improvement on IV hydration. The patient is progressing to end-stage renal disease. The patient is not willing to have any plans for renal replacement yet. He wants to have close monitor. He wants to have some dietary intervention and lifestyle modifications to be tried first. 2. No uremia symptoms reported. 3. Acidosis, chronic. 4. Hypercalcemia. 5. Diabetic nephropathy with proteinuria. 6. Hypoalbuminemia. 7. History of hypertension. Blood pressure is stable. 8. The patient does not wish to have any plans for renal replacement yet. The patient was counseled that most likely he is having chronic kidney disease stage 5 now. We will continue close monitor. Advised to come to the clinic next week and have a close monitor of the labs and further plans will be made based on the clinical course. Plan discussed with Dr. Carlisle at the bedside nurse. Job ID: [id number]
== END 2020-03-27 12:25 | disposition home or self-care (01) | DRG 683 ==
LOC: ERS 13:29 → OBSVTOIN 15:48 → INTOOBSV 15:48 → T4-A 15:48 → ERS 18:11
PROVIDERS: ADMIT Internal Medicine; ATTEND Internal Medicine
DX: N17.9 Acute kidney failure, unspecified (principal); E87.2 Acidosis; I12.0 Hypertensive chronic kidney disease with stage 5 chronic kidney disease or end stage renal disease; Z20.828 Contact with and (suspected) exposure to other viral communicable diseases; E11.22 Type 2 diabetes mellitus with diabetic chronic kidney disease; E78.00 Pure hypercholesterolemia, unspecified; I25.10 Atherosclerotic heart disease of native coronary artery without angina pectoris; E78.5 Hyperlipidemia, unspecified; F41.9 Anxiety disorder, unspecified; F32.9 Major depressive disorder, single episode, unspecified; D63.1 Anemia in chronic kidney disease; N18.5 Chronic kidney disease, stage 5; E88.09 Other disorders of plasma-protein metabolism, not elsewhere classified; F17.210 Nicotine dependence, cigarettes, uncomplicated; E86.0 Dehydration; Z79.899 Other long term (current) drug therapy; Z95.1 Presence of aortocoronary bypass graft
CPT/HCPCS: 36415; 36416; 76770; 80048; 80053; 81001; 82570; 83735; 84156; 85025; 87635; 93005; 96360; 96361; 96374; G0378; J0360; U0003